=== PATIENT | female | born 1950 | race Hispanic/Latino ===

== ENCOUNTER → 2023-12-09 | Outpatient (CLI) | payer OTHER ==
[~2023-12-09] MED LIST: IOHEXOL 350 MG/ML 100ML INFUS..BTL IV ONE; NITROGLYCERIN 4.1 GM SPRAY TL ONE
== END | disposition home or self-care (01) ==
LOC: CANSCHCLI → RAH 10:28
PROVIDERS: ATTEND Student in an Organized Health Care Education/Training Program
DX: K44.9 Diaphragmatic hernia without obstruction or gangrene (principal); R07.9 Chest pain, unspecified
CPT/HCPCS: 75574; Q9967